=== PATIENT | female | born 1990 | race Two or more races ===

== ENCOUNTER 2018-07-31 16:49 | Emergency (ER) | payer OTHER ==
[2018-07-31 17:00] VITALS: BP 132/71
--- NOTE | 2018-07-31 17:07 | ER Report ---
History and Physical Time Seen By MD: 17:05 HPI/ROS CHIEF COMPLAINT: Suture removal HISTORY OF PRESENT ILLNESS: This is a 28-year-old female who presents to the emergency department to have her sutures removed. Patient had 3 sutures placed 7 days ago in the pad of her left thumb. Patient denies fevers or chills, no discharge from the wound. No erythema. No other complaints. Allergies: Coded Allergies: No Known Allergies (Verified Allergy, Unknown, 07/24/18) Home Meds No Active Prescriptions or Reported Meds Past Medical/Surgical History The patient has a past medical history of asthma, no other significant past medical history. Reviewed Nurses Notes: Yes Hx Smoking: No Smoking Status: Never Smoker Exposure to Second Hand Smoke?: No Hx Substance Use Disorder: No Hx Alcohol Use: No Constitutional Vital Sign - Last 24 Hours 07/31/18 17:00 Temp 98.3 Pulse 71 Resp 16 B/P (MAP) 132/71 Pulse Ox 91 O2 Delivery Room Air Physical Exam General appearance: Alert no distress. Respiratory: Chest is non tender, lungs are clear to auscultation. Cardiac: Regular rate and rhythm Integumentary: 3 sutures to the pad of the left thumb. Wound is well approximated, no erythema or cellulitis. DIFFERENTIAL DIAGNOSIS: After history and physical exam differential diagnosis was considered for suture removal. Medical Decision Making ED Course/Re-evaluation ED Course The patient was admitted to a room. A history of sore obtained. Differential diagnoses were considered. 3 sutures were removed from the patient's left thumb. Wound is well approximated, signs of infection. A Band-Aid was placed patient's finger. Patient was discharged home. Decision to Disposition Date: Jul 31, 2018 Decision to Disposition Time: 17:13 Depart Departure Latest Vital Signs Vital Signs Date Time Temp Pulse Resp B/P (MAP) Pulse Ox O2 Delivery O2 Flow Rate FiO2 07/31/18 17:00 98.3 71 16 132/71 91 Room Air Impression: Primary Impression: Visit for suture removal Condition: Improved Disposition: HOME OR SELF-CARE New Scripts No Active Prescriptions or Reported Meds Patient Instructions: Acute Wound Care (ED) Additional Instructions: Monitor for signs of infection; redness, swelling, heat, discharge, increasing pain or red streaking. Take Tylenol or Ibuprofen as needed for pain. Return to the ER with any concerns. Drink plenty of water. Get plenty of rest. SONDGEROTH,ALANNA L [employer]PER-BC Jul 31, 2018 17:07
== END 2018-07-31 17:20 | disposition home or self-care (01) ==
LOC: ER 17:00
DX: S61.012D Laceration without foreign body of left thumb without damage to nail, subsequent encounter (principal)
CPT/HCPCS: 99281

== ENCOUNTER → 2019-01-16 | Outpatient (CLI) | payer OTHER ==
[~2019-01-16] MED LIST: ALB18R INH
== END ==
LOC: LAB 15:10
PROVIDERS: ATTEND Student in an Organized Health Care Education/Training Program
DX: R35.8 Other polyuria (principal); I10 Essential (primary) hypertension
CPT/HCPCS: 36415; 83036; 84443

== ENCOUNTER → 2019-03-30 | Outpatient (CLI) | payer OTHER ==
[~2019-03-30] MED LIST changes: +PREN-127 PO
[2019-03-30 12:23] LABS: PLATELET COUNT, AUTOMATED 286 K/uL (150-450)
== END ==
LOC: LAB 08:05
PROVIDERS: ATTEND Obstetrics & Gynecology
DX: Z34.81 Encounter for supervision of other normal pregnancy, first trimester (principal)
CPT/HCPCS: 36415; 81001; 85025; 86592; 86703; 86762; 86850; 86900; 86901; 87088; 87340

== ENCOUNTER → 2019-04-04 | Outpatient (CLI) | payer OTHER | LOC: LAB 09:03 | PROVIDERS: ATTEND Student in an Organized Health Care Education/Training Program | DX: Z11.8 Encounter for screening for other infectious and parasitic diseases (principal); Z11.3 Encounter for screening for infections with a predominantly sexual mode of transmission; Z3A.08 8 weeks gestation of pregnancy | CPT/HCPCS: 87491; 87591 ==

== ENCOUNTER → 2019-05-02 | Outpatient (CLI) | payer OTHER | LOC: LAB 13:42 | PROVIDERS: ATTEND Obstetrics & Gynecology | DX: O12.11 Gestational proteinuria, first trimester (principal) | CPT/HCPCS: 36415; 82040; 82247; 82310; 82374; 82435; 82565; 82947; 84075; 84132; 84155; 84295; 84450; 84460; 84520 ==

== ENCOUNTER → 2019-05-07 | Outpatient (CLI) | payer OTHER | LOC: LAB 11:30 | PROVIDERS: ATTEND Obstetrics & Gynecology | DX: O12.11 Gestational proteinuria, first trimester (principal) | CPT/HCPCS: 36415; 82575; 84156 ==

== ENCOUNTER 2019-05-23 22:45 | Emergency (ER) | payer OTHER ==
[2019-05-23] MEDS ORDERED: ENOX40DI9 SQ (23:01)
[2019-05-23] MEDS ORDERED: ASPI-1471 PO (23:01)
--- NOTE | 2019-05-23 23:06 | ER Report ---
History and Physical Time Seen By MD: 23:03 Hx. of Stated Complaint: thigh numbness past for days. Currently , in process of terminating HPI/ROS CHIEF COMPLAINT: thight numbness and swelling HISTORY OF PRESENT ILLNESS: This is a 29 year old female. She is having about 4 days of numbness in the right thigh, lateral area from hip and groin area to knee. Associated with some swelling as well. Numbness just started and has stayed. Does not change at all. No real pain in the area, fullness in groin are a. Worried about mass or blood clots. Says she had a family member with similar problem that was circulation related. Has not experienced any weakness or leg giving way. Normal urination and bowels. Has recently been diagnosed with glomerulosclerosis, and has follow-up with nephrology, and is in second trimester of , but with planned termination in the next 1-2 weeks. No fevers or chills. No headache. No dizziness. No vision changes. Does have history of falling out of a 2nd story window at age 23 years old, but no evaluation that she is aware of, but no problems like this in the past. REVIEW OF SYSTEMS: Constitutional: No fever or chills. Eyes: No vision changes. ENT: No sore throat. No congestion. Cardiovascular: No chest pain. No palpitations. Respiratory: No cough. No shortness of breath. Gastrointestinal: No abdominal pain. No nausea or vomiting. No change in bowel movements. Genitourinary: No dysuria. No frequency Musculoskeletal: No extremity pain. Skin: No rashes. Neurological: As above. Allergies: Coded Allergies: No Known Allergies (Verified Allergy, Unknown, 07/24/18) Home Meds Reported Medications Enoxaparin Sodium (ENOXAPARIN SODIUM) 40 Mg/0.4 Ml Disp.syrin, 40 MG SQ, SYR 05/23/19 Aspirin (ASPIR 81) 81 Mg Tablet.dr, 81 MG PO QDAY, TAB 05/23/19 Vits W-Ca,Fe,Fa(<1MG) ( VITAMINS) 1 Each Tablet, 1 EACH PO DAILY, TAB 03/30/19 Albuterol Sulfate (VENTOLIN HFA) 18 Gm Inh, 1-2 PUFF INH 3-4XD, INH 01/16/19 Reviewed Nurses Notes: Yes Hx Smoking: No Smoking Status: Never Smoker Exposure to Second Hand Smoke?: No Hx Substance Use Disorder: No (marijuana in past) Hx Alcohol Use: No (holidays) Constitutional Vital Sign - Last 24 Hours 05/23/19 05/23/19 05/23/19 05/24/19 22:51 23:00 23:30 00:00 Temp 98.7 Pulse 88 87 86 Resp 22 B/P (MAP) 151/117 102/87 (92) 157/101 (119) 147/80 (102) Pulse Ox 93 94 93 O2 Delivery Room Air 05/24/19 05/24/19 05/24/19 05/24/19 00:18 00:30 01:01 01:30 Pulse 74 B/P (MAP) 143/78 (99) 143/86 (105) 141/80 (100) 140/95 (110) Pulse Ox 93 92 Physical Exam General Appearance: The patient is alert. No acute distress. Non-toxic in appearance. Eyes: Pupils are equal, round. Reactive to light. No pallor, injection or icterus. Extraocular movements are intact. ENT: Mucous membranes are moist. Normal oral mucosa. Posterior oropharynx is normal. Neck: Supple and non tender. Respiratory: Lungs are clear to auscultation. Cardiovascular: Regular rate and rhythm. No murmurs, gallops or rubs. Normal capillary refill. No edema. Gastrointestinal: Abdomen is soft and non tender. Nondistended. Normal active bowel sounds. Neurological: Alert and oriented x3. Cranial nerves with eye exam as noted above. Midline tongue/palate elevation, Normal facial sensation, no facial weakness. Numbness lateral thigh, extending anteriorly just past the midline, and around to the posterior thigh. From the groin and hip area down to the knee. No other sensory deficits in extremities. Normal/equal strength in the lower extremities. Normal coordination. Skin: Warm and dry. No rashes. Musculoskeletal: Extremities are nontender. No tenderness in palpation of the cervical, thoracic and lumbar spine. DIFFERENTIAL DIAGNOSIS: After history and physical exam, differential diagnosis was considered for sensory deficit with discomfort and some swelling in upper thigh and groin area. Will start with CT scan, non-contrast due to the kidney problems, and ultrasound. Pattern is not a nerve root pattern, so would consider a peripheral nerve irritation versus central problem such as MS or stroke. Medical Decision Making Data Points Result Diagram: 05/23/19 2356 05/23/19 2356 Laboratory Hematology Test 05/23/19 23:56 White Blood Count 11.0 k/uL (4.5-11.0) Red Blood Count 4.43 M/uL (4.17-5.56) Hemoglobin 12.7 g/dL (12.0-16.0) Hematocrit 36.5 % (34.0-47.0) Mean Corpuscular Volume 82.4 fL (80.0-96.0) Mean Corpuscular Hemoglobin 28.8 pg (26.0-33.0) Mean Corpuscular Hemoglobin Concent 34.9 g/dL (32.0-36.0) Red Cell Distribution Width 13.0 % (11.5-14.5) Platelet Count 283 K/uL (150-450) Mean Platelet Volume 9.8 fL (7.2-11.1) Neutrophils (%) (Auto) 63.2 % (39.4-72.5) Lymphocytes (%) (Auto) 24.6 % (17.6-49.6) Monocytes (%) (Auto) 9.1 % (4.1-12.4) Eosinophils (%) (Auto) 2.7 % (0.4-6.7) Basophils (%) (Auto) 0.4 % (0.3-1.4) Nucleated RBC Relative Count (auto) 0.2 /100WBC Neutrophils # (Auto) 6.9 K/uL (2.0-7.4) Lymphocytes # (Auto) 2.7 K/uL (1.3-3.6) Monocytes # (Auto) 1.0 K/uL (0.3-1.0) Eosinophils # (Auto) 0.3 K/uL (0.0-0.5) Basophils # (Auto) 0.0 K/uL (0.0-0.1) Nucleated RBC Absolute Count (auto) 0.03 K/uL Chemistry Test 05/23/19 23:56 Sodium Level 138 mmol/L (137-145) Potassium Level 3.6 mmol/L (3.5-5.0) Chloride Level 109 mmol/L (98-107) Carbon Dioxide Level 20 mmol/L (22-31) Blood Urea Nitrogen 9 mg/dl (7-18) Creatinine 0.50 mg/dl (0.52-1.04) Glomerular Filtration Rate Calc > 60.0 Random Glucose 116 mg/dl (75-110) Calcium Level 8.6 mg/dl (8.4-10.2) Total Bilirubin 0.1 mg/dl (0.2-1.3) Aspartate Amino Transf (AST/SGOT) 19 U/L (0-35) Alanine Aminotransferase (ALT/SGPT) 20 U/L (0-56) Alkaline Phosphatase 62 U/L (0-126) Total Protein 6.3 g/dl (6.3-8.2) Albumin 3.0 g/dl (3.5-5.0) Coagulation Test 05/23/19 23:56 Prothrombin Time 12.9 seconds (12.0-14.4) Prothromb Time International Ratio 0.97 Activated Partial Thromboplast Time 33 seconds (23-35) Urinalysis Test 05/24/19 01:00 Urine Color Yellow Urine Clarity Slightly-cloudy Urine pH 5.0 pH (4.8-9.5) Urine Specific [place] 1.031 Urine Protein 500 mg/dL (NEGATIVE) Urine Glucose (UA) Negative mg/dL (NEGATIVE) Urine Ketones Trace mg/dL (NEGATIVE) Urine Blood Negative (NEGATIVE) Urine Nitrite Negative (NEGATIVE) Urine Bilirubin Negative (NEGATIVE) Urine Urobilinogen Negative mg/dL (0.2-1.9) Urine Leukocyte Esterase Negative (NEGATIVE) Urine RBC 1 /HPF (0-2/HPF) Urine WBC 4 /HPF (0-5/HPF) Urine Squamous Epithelial Cells Many /LPF (</=FEW) Urine Transitional Epithelial Cells Few /LPF (NONE-FEW) Urine Bacteria Few /HPF (NONE-FEW) Urine Mucus Few /HPF (NONE-FEW) EKG/Imaging Imaging CT ABDOMEN PELVIS W/O CON COMPARISONS: None. ADDITIONAL PERTINENT HISTORY: Left thigh and groin numbness. TECHNIQUE: Multiple axial images are obtained from the lung bases through the lesser trochanters without IV contrast. One of the following dose optimization techniques was utilized in the performance of this exam: Automated exposure control; adjustment of the mA and/or kV according to the patient's size; or use of an iterative reconstruction technique. Specific details can be referenced in the facility's radiology CT exam operational policy. FINDINGS: Lung bases: Negative. Free air and free fluid: None. Liver: Negative for a noncontrasted examination.. Spleen: Negative for a noncontrasted examination. Adrenal glands: Negative. Kidneys, ureters and urinary bladder: Mild prominence of the kidneys bilaterally. Otherwise negative. Pancreas: Grossly negative. Gallbladder: Negative.. Bowel and mesentery: Normal-appearing appendix in the right lower quadrant.. Lymph node assessment: Negative. Abdominal pelvic vasculature: Negative. Intrapelvic contents: Patient with a single intrauterine which is known. Otherwise negative. Surrounding soft tissues: Mild soft tissue stranding within the flanks soft tis sues bilaterally likely representing a small amount of edema. No organized fluid collection. Other surrounding soft tissues including the musculature the proximal thighs is symmetric without evidence of underlying laboratory change or fluid collection.. Osseous structures: Negative. IMPRESSION: 1. Patient with single intrauterine . 2. No other acute process noted. Report Dictated By: Dat Jordan MD at 05/24/2019 12:35 AM Duplex Doppler ultrasound of the right lower extremity: Indication: Swelling. Technique: Compression ultrasound with duplex Doppler imaging was performed. Comparison: None available. Findings: There is normal compression of the right common femoral, superficial femoral, popliteal, peroneal, anterior tibial, posterior tibial, and proximal saphenous veins. There is no evidence of echogenic thrombus. The Doppler patterns of resting flow and augmentation are within normal limits. There is no mass or fluid collection. IMPRESSION: No evidence of deep vein thrombosis in the right lower extremity. Report Dictated By: Hernan Chiang MD at 05/24/2019 1:14 AM MR BRAIN/BRAIN STEM W/O CON Comparisons: None. Additional pertinent history: Right thigh numbness for 4 days. TECHNIQUE: Multiplanar, multisequence brain MRI was performed without g adolinium contrast. FINDINGS: Sagittal midline structures and craniocervical junction: Negative. Midline shift: None. Ventricles: Marked dilatation of the occipital horn of the left lateral ve ntricle as well as the atrium of the left lateral ventricle. Brain parenchyma: Diffusion weighted imaging: Negative. Gradient sequence: Negative. T2 weighted FLAIR images: Marked thinning of the left periatrial white matter with thinning of the cortex involving the posterior left temporal lobe likely congenital in nature given the appearance. Extra-axial spaces: Negative. Dural venous sinuses and major arterial flow voids: Negative. Mastoid air cells and paranasal sinuses: Negative. Surrounding soft tissues and orbits: Negative. Impression: 1. 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 2. No acute intracranial pathology. Report Dictated By: Dat Jordan MD at 05/24/2019 2:47 AM ED Course/Re-evaluation Clinical Indication for ER IV: IV Access ED Course Initially had CT scan abdomen and pelvis without contrast, normal appearing vasculature, limited by noncontrast study. Negative ultrasound as well. Discussed results with patient. Discussed other possibilities, and went ahead with MRI brain without contrast. Showed congenital change, without signs of acute change, but enlarged posterior left horn of the ventricle would possibly coincide with sensory area in question. No sign of MS or stroke. Recommended follow-up with neurology for further evaluation of the numbness. Decision to Disposition Date: May 24, 2019 Decision to Disposition Time: 03:06 Depart Departure Latest Vital Signs Vital Signs Date Time Temp Pulse Resp B/P (MAP) Pulse Ox O2 Delivery O2 Flow Rate FiO2 05/24/19 01:30 74 140/95 (110) 92 05/23/19 22:51 98.7 22 Room Air Impression: Primary Impression: Thigh numbness Condition: Condition Unchanged Disposition: HOME OR SELF-CARE Referrals: MOIRA LAWSON DO (PCP) TOMMY JAMA MD Patient Instructions: Paresthesia (ED) Additional Instructions: We did not find a definitive cause for the numbness in the right thigh. You did have an abnormal finding on MRI as we discussed, but is unclear if related to the numbness or not, and looks like a chronic enlargement of the left ventricle of the brain, likely there since or very young. We do recommend follow-up with neurology for further evaluation. Dr. Tommy Jama, neurology, comes to [place] at the [facility] visiting physicians here at the hospital. Please call tomorrow to schedule an appointment with her for further evaluation. Follow-up with OB and nephrology as planned. MARVA SAGE MD May 23, 2019 23:06
[2019-05-24 00:15] LABS: PLATELET COUNT, AUTOMATED 283 K/uL (150-450)
[2019-05-24 00:18] LABS: INR 0.97
--- NOTE | 2019-05-24 00:46 | RADIOLOGY IMAGING REPORT ---
FACILITY: [facility] - [place] PATIENT NAME: Hiram Schroeder : 1990 MR: [id number] V: [id number] EXAM DATE: ORDERING PHYSICIAN: MARVA SAGE TECHNOLOGIST: Location: [facility] - [place] Patient: Hiram Schroeder : 1990 Visit/Account:[id number] Date of Sevice: 05/23/2019 CT ABDOMEN PELVIS W/O CON COMPARISONS: None. ADDITIONAL PERTINENT HISTORY: Left thigh and groin numbness. TECHNIQUE: Multiple axial images are obtained from the lung bases through the lesser trochanters with out IV contrast. One of the following dose optimization techniques was utilized in the performance o f this exam: Automated exposure control; adjustment of the mA and/or kV according to the patient's si ze; or use of an iterative reconstruction technique. Specific details can be referenced in the [facility]'s radiology CT exam operational policy. FINDINGS: Lung bases: Negative. Free air and free fluid: None. Liver: Negative for a noncontrasted examination.. Spleen: Negative for a noncontrasted examination. Adrenal glands: Negative. Kidneys, ureters and urinary bladder: Mild prominence of the kidneys bilaterally. Otherwise negative. Pancreas: Grossly negative. Gallbladder: Negative.. Bowel and mesentery: Normal-appearing appendix in the right lower quadrant.. Lymph node assessment: Negative. Abdominal pelvic vasculature: Negative. Intrapelvic contents: Patient with a single intrauterine which is known. Otherwise negative . Surrounding soft tissues: Mild soft tissue stranding within the flanks soft tissues bilaterally likel y representing a small amount of edema. No organized fluid collection. Other surrounding soft tissues including the musculature the proximal thighs is symmetric without evidence of underlying laboratory change or fluid collection.. Osseous structures: Negative. IMPRESSION: 1. Patient with single intrauterine . 2. No other acute process noted. Report Dictated By: Dat Jordan MD at 05/24/2019 12:35 AM Report E-Signed By: Dat Jordan MD at 05/24/2019 12:40 AM WSN:[id number]
--- NOTE | 2019-05-24 01:22 | RADIOLOGY IMAGING REPORT ---
FACILITY: [facility] - [place] PATIENT NAME: Hiram Schroeder : 1990 MR: [id number] V: [id number] EXAM DATE: ORDERING PHYSICIAN: MARVA SAGE TECHNOLOGIST: Location: [facility] - [place] Patient: Hiram Schroeder : 1990 Visit/Account:[id number] Date of Sevice: 05/24/2019 Duplex Doppler ultrasound of the right lower extremity: Indication: Swelling. Technique: Compression ultrasound with duplex Doppler imaging was performed. Comparison: None available. Findings: There is normal compression of the right common femoral, superficial femoral, popliteal, pe roneal, anterior tibial, posterior tibial, and proximal saphenous veins. There is no evidence of echo genic thrombus. The Doppler patterns of resting flow and augmentation are within normal limits. There is no mass or fluid collection. IMPRESSION: No evidence of deep vein thrombosis in the right lower extremity. Report Dictated By: Hernan Chiang MD at 05/24/2019 1:14 AM Report E-Signed By: Hernan Chiang MD at 05/24/2019 1:16 AM WSN:[id number]
--- NOTE | 2019-05-24 02:55 | RADIOLOGY IMAGING REPORT ---
FACILITY: [facility] PATIENT NAME: Hiram Schroeder : 1990 MR: [id number] V: [id number] EXAM DATE: ORDERING PHYSICIAN: MARVA SAGE TECHNOLOGIST: Location: [facility] Patient: Hiram Schroeder : 1990 Visit/Account:[id number] Date of Sevice: 05/24/2019 MR BRAIN/BRAIN STEM W/O CON Comparisons: None. Additional pertinent history: Right thigh numbness for 4 days. TECHNIQUE: Multiplanar, multisequence brain MRI was performed without gadolinium contrast. FINDINGS: Sagittal midline structures and craniocervical junction: Negative. Midline shift: None. Ventricles: Marked dilatation of the occipital horn of the left lateral ventricle as well as the atri um of the left lateral ventricle. Brain parenchyma: Diffusion weighted imaging: Negative. Gradient sequence: Negative. T2 weighted FLAIR images: Marked thinning of the left periatrial white matter with thinning of the cortex involving the posterior left temporal lobe likely congenital in nature given the appearance. Extra-axial spaces: Negative. Dural venous sinuses and major arterial flow voids: Negative. Mastoid air cells and paranasal sinuses: Negative. Surrounding soft tissues and orbits: Negative. Impression: 1. 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 2. No acute intracranial pathology. Report Dictated By: Dat Jordan MD at 05/24/2019 2:47 AM Report E-Signed By: Dat Jordan MD at 05/24/2019 2:50 AM WSN:[id number]
[2019-05-24 03:00] VITALS: BP 130/93
== END 2019-05-24 03:15 | disposition home or self-care (01) ==
LOC: ER 23:09
DX: R20.0 Anesthesia of skin (principal)
CPT/HCPCS: 70551; 74176; 81001; 82040; 82247; 82310; 82374; 82435; 82565; 82947; 84075; 84132; 84155; 84295; 84450; 84460; 84520; 85025; 85610; 85730; 99284

== ENCOUNTER → 2019-06-19 | Outpatient (CLI) | payer OTHER ==
[~2019-06-19] MED LIST changes: +ASPI-1471 PO; +ENOX40DI9 SQ; +LISI20TA29 PO
== END ==
LOC: LAB 15:26
PROVIDERS: ATTEND Internal Medicine Nephrology
DX: O12.11 Gestational proteinuria, first trimester (principal); N04.9 Nephrotic syndrome with unspecified morphologic changes; I10 Essential (primary) hypertension
CPT/HCPCS: 82570; 84156

== ENCOUNTER → 2019-07-03 | Outpatient (CLI) | payer OTHER ==
[~2019-07-03] MED LIST changes: +AZIT-17 PO; +LISI-374 PO; +MEDR150V11 IM; +OMEP-126 PO; +PRED20TA6 PO; +TRI05T TP
== END ==
LOC: LAB 15:34
PROVIDERS: ATTEND Internal Medicine Nephrology
DX: O12.11 Gestational proteinuria, first trimester (principal); N04.9 Nephrotic syndrome with unspecified morphologic changes; I10 Essential (primary) hypertension

== ENCOUNTER → 2019-07-03 | Outpatient (CLI) | payer OTHER ==
[2019-07-03 16:19] LABS: PLATELET COUNT, AUTOMATED 362 K/uL (150-450)
== END ==
LOC: LAB 15:33
PROVIDERS: ATTEND Obstetrics & Gynecology
DX: N05.0 Unspecified nephritic syndrome with minor glomerular abnormality (principal)
CPT/HCPCS: 36415; 81001; 82040; 82247; 82310; 82374; 82435; 82565; 82947; 84075; 84132; 84155; 84295; 84450; 84460; 84520; 85025

== ENCOUNTER → 2019-07-05 | Outpatient (CLI) | payer OTHER ==
[2019-07-05 15:40] LABS: PLATELET COUNT, AUTOMATED 346 K/uL (150-450)
--- NOTE | 2019-07-05 17:29 | RADIOLOGY IMAGING REPORT ---
FACILITY: [facility] - [place] PATIENT NAME: Hiram Schroeder : 1990 MR: [id number] V: [id number] EXAM DATE: ORDERING PHYSICIAN: NIA BEATTY TECHNOLOGIST: Location: [facility] Patient: Hiram Schroeder : 1990 Visit/Account:[id number] Date of Sevice: 07/05/2019 EXAMINATION: CT CHEST PULMONARY ANGIOGRAM COMPARISON: None available HISTORY: elevated D-dimer PROCEDURE: Pulmonary arterial phase imaging of the chest with 75 mL intravenous Isovue 370. Reconstru ction of the source data set includes multiplanar 2D in the sagittal and coronal planes, and 3D recon structed coronal slab MIP series. One of the following dose optimization techniques was utilized in the performance of this exam: Autom ated exposure control; adjustment of the mA and/or kV according to the patient's size; or use of an i terative reconstruction technique. Specific details can be referenced in the facility's radiology C T exam operational policy. FINDINGS: Pulmonary vasculature: There is good contrast opacification of the pulmonary arterial system. No pul monary embolism. Main pulmonary artery size is normal. Cardiac and mediastinum: Negative. Lymph nodes: Negative. Lungs and pleura: Negative. Airways: Negative. Visualized upper abdomen: Negative. Osseous structures: Negative. IMPRESSION: Negative chest CT. No pulmonary embolism or evidence of acute cardiopulmonary disease. Report Dictated By: Ty Haynes MD at 07/05/2019 5:11 PM Report E-Signed By: Ty Haynes MD at 07/05/2019 5:20 PM WSN:[id number]
== END ==
LOC: LAB 14:44
PROVIDERS: ATTEND Emergency Medicine
DX: R79.89 Other specified abnormal findings of blood chemistry (principal); D72.829 Elevated white blood cell count, unspecified
CPT/HCPCS: 36415; 71275; 85025; 85379; 86140